=== PATIENT | female | born 1995 ===

== ENCOUNTER 2022-03-01 02:44 | Inpatient (IN) ==
[~2022-03-01 02:44] MED LIST: Famotidine 20 MG/2 ML VIAL IVP PRN; Metoclopramide 10 MG/2 ML VIAL IVP PRN; Naloxone 0.4 MG/ML INJ IVP PRN
[2022-03-01] MEDS ORDERED: Ringers Solution, Lactated 1,000 ML IVC SCH (02:45)
[2022-03-01 03:32] LABS: Basophils % 0.2 %; Eosinophils # 0.1 K/mcL (0.0-0.6); Eosinophils % 0.5 %; Hematocrit 41.4 % (35.3-44.9); Immature Granulocytes % 0.6 % (0-4); Lymphocytes # 2.2 K/mcL (0.6-4.6); Lymphocytes % 17.4 %; Mean Corpuscular HGB Conc 33.8 g/dL (31.6-35.5); Mean Corpuscular Hemoglobin 30.5 pg (28.0-33.3); Mean Corpuscular Volume 90.2 fL (83.0-100.0); Mean Platelet Volume 12.8 fL (9.4-12.4); Monocytes % 8.1 %; Neutrophils # 9.2 K/mcL (1.6-8.9); Platelet Count 153 K/mcL (140-400); Red Blood Count 4.59 M/mcL (3.82-4.97); Red Cell Distribution Width 13.7 % (11.5-14.5); Segmented Neutrophils % 73.2 %; White Blood Count 12.5 K/mcL (4.3-11.1)
[2022-03-01 03:39] LABS: Amphetamine Screen,Urine Negative ng/mL (Cutoff=1000); Barbiturate Screen,Urine Negative ng/mL (Cutoff=200); Benzodiazepines Screen,Urine Negative ng/mL (Cutoff=200); Cannabinoid Screen,Urine Negative ng/mL (Cutoff = 50); Cocaine Screen,Urine Negative ng/mL (Cutoff= 300); Opiate Screen,Urine Negative ng/mL (Cutoff=300); Phencyclidine Screen,Urine Negative ng/mL (Cutoff=25)
[2022-03-01] MEDS ORDERED: Oxytocin 30 UNIT/503 ML BAG IVC ONE (05:23)
[2022-03-01] MEDS ORDERED: OXYTOCIN/RINGERS LACTATE 10 UNIT/166.6 ML BAG IVC ONE (09:19)
[2022-03-01] MEDS ORDERED: Lanolin 7 G OINT...G. TP PRN (09:19)
[2022-03-01] MEDS ORDERED: Oxytocin 30 UNIT/503 ML BAG IVC SCH (09:19)
[2022-03-01] MEDS ORDERED: Benzocaine/Menthol 56 GM AEROSOL SPRAY TP PRN (09:19)
[2022-03-01] MEDS ORDERED: Ondansetron ODT 4 MG TAB.RAPDIS SL PRN (09:19)
[2022-03-01] MEDS: Prenatal Vit/FA 1 EACH TABLET PO SCH (11:16)
[2022-03-01] MEDS: Acetaminophen 325 MG TABLET PO SCH ×2 (14:00→20:40)
[2022-03-01] MEDS: Ibuprofen 600 MG TABLET PO SCH ×2 (14:00→20:41)
[2022-03-02 07:53] VITALS: BP 115/79; PULSE 70; TEMP 98; O2SAT 96
[2022-03-02] MEDS: Acetaminophen 325 MG TABLET PO SCH (08:35)
[2022-03-02] MEDS: Prenatal Vit/FA 1 EACH TABLET PO SCH (08:35)
[2022-03-02] MEDS: Ibuprofen 600 MG TABLET PO SCH (08:35)
== END 2022-03-02 14:30 | disposition home or self-care (01) | DRG 807 ==
LOC: 1NENULAB → 1NENUOBS 09:18
PROVIDERS: ADMIT Advanced Practice Midwife; ATTEND Advanced Practice Midwife